=== PATIENT | female | born 1990 | race Caucasian/White ===

== ENCOUNTER 2019-10-16 08:47 | Outpatient (CLI) | payer BC, SELFPAY ==
[2019-10-16 09:13] LABS: Basophils Absolute Auto 0.04 K/mm3 (0.00-0.10); Basophils Percent Auto 0.4 % (0.0-1.0); Eosinophils Absolute Auto 0.41 K/mm3 (0.02-0.50); Eosinophils Percent Auto 4.4 % (1.0-6.0); Hematocrit 44.8 % (35.0-49.0); Hemoglobin 14.7 g/dL (12.0-15.0); Immature Granulocyte Absolute 0.02 K/mm3 (0.00-0.00); Immature Granulocyte Percent A 0.2 % (0.0-0.0); Lymphocytes Absolute Auto 2.26 K/mm3 (1.10-4.50); Lymphocytes Percent Auto 24.4 % (18.0-42.0); Mean Corpuscular HGB Conc 32.8 g/dL (32.0-36.0); Mean Corpuscular Hemoglobin 29.5 pg (27.0-31.0); Mean Corpuscular Volume 89.8 fL (78.0-102.0); Mean Platelet Volume 9.4 fl (9.2-11.8); Monocytes Percent Auto 6.5 % (2.0-11.0); Neutrophils Absolute Auto 5.9 K/mm3 (1.7-7.2); Neutrophils Percent Auto 64.1 % (50.0-70.0); Platelet Count Result 290 K/mm3 (150-420); Red Blood Count 4.99 M/mm3 (4.20-5.40); White Blood Count 9.3 K/mm3 (4.8-10.8)
[2019-10-16 09:21] LABS: Hemoglobin A1C 5.6 % (<5.7)
[2019-10-16 10:45] LABS: Alanine Aminotransferase 27 U/L (14-59); Alkaline Phosphatase 68 U/L (46-116); Anion Gap 12.2 mmol/L (7-16); Aspartate Amino Transferase 24 U/L (15-37); Bilirubin,Total 0.4 mg/dL (0.00-1.00); Blood Urea Nitrogen 15 mg/dL (7-18); Calcium 8.6 mg/dL (8.5-10.1); Carbon Dioxide 30 mmol/L (21-32); Chloride 103 mmol/L (98-108); Cholesterol 258 mg/dL (0-200); Estimated Glomerular Filt Rate 56; Glucose 74 mg/dL (70-99); HDL Direct 62 mg/dL (40-60); LDL Cholesterol Calculated 185 mg/dL (<130); Osmolality Calculated 291 mOsm/kg (285-295); Potassium 4.2 mmol/L (3.5-5.1); Sodium 141 mmol/L (136-145); Total Protein 7.5 g/dL (6.4-8.2); Triglycerides 57 mg/dL (0-150)
[2019-10-16 11:10] LABS: Thyroid Stimulating Hormone > 96.00 uIU/mL (0.36-3.74)
== END 2019-10-16 08:48 | disposition home or self-care (01) ==
LOC: CHSLAB 08:57
PROVIDERS: PCP Nurse Practitioner Family; Visit Provider Nurse Practitioner Family
DX: Z83.3 Family history of diabetes mellitus (principal); E03.9 Hypothyroidism, unspecified; G47.30 Sleep apnea, unspecified; R53.83 Other fatigue
CPT/HCPCS: 36415; 80053; 80061; 83036; 84436; 84443; 85025

== ENCOUNTER 2020-11-26 10:01 | Emergency (ER) | payer BC, SELFPAY ==
--- NOTE | ~2020-11-26 | XR_ITS ---
EXAMINATION: XR chest 1V portable DATE: 11/26/2020 11:20 INDICATION: Cough and hemoptysis TECHNIQUE: frontal view of the chest was obtained. COMPARISON: None FINDINGS: Sensitivity in the lower lung zones decreased by patient body habitus. Subtle opacities in the right lower lung zone 1 with somewhat nodular appearance projecting over the confluence of the anterior fif th and posterior ninth ribs. No pleural effusion or pneumothorax. The cardiomediastinal silhouette is normal. Visualized bones and soft tissues are unremarkable. IMPRESSION: 1. Specific subtle opacities in the right lower lung zone including a more nodular opacity for which CT would be recommended for further evaluation. Reviewed, dictated and finalized at location A. IMPRESSION: 1. Specific subtle opacities in the right lower lung zone including a more nodu lar opacity for which CT would be recommended for further evaluation.
--- NOTE | 2020-11-26 10:09 | ECG_ITS ---
Measurements Intervals [place] Rate: 93 P: 25 NM: 140 QRS: 51 QRSD: 116 T: 28 QT: 347 QTc: 432 Interpretive Statements SINUS RHYTHM BORDERLINE T WAVE ABNORMALITY- INFERIOR LEADS BASELINE ARTIFACT- I, II, III, AVL, AVF BORDERLINE ECG Electronically Signed On 11-28-2020 7:10:48 CDT by Abdias Lorenzo D.O.
[2020-11-26 10:10] VITALS: BP 140/85; PULSE 103; RESP 20; TEMP 36.8; O2SAT 95
--- NOTE | 2020-11-26 10:20 | ED.CHESTPAIN ---
HPI - Chest Pain General Chief Complaint: Upper Respiratory Infection Stated Complaint: chest pain Time Seen by Provider: 11/26/20 10:20 Source: patient and family Mode of arrival: ambulatory Limitations: no limitations History of Present Illness HPI narrative: 30-year-old woman with history of Graves disease comes in today complaining of heaviness in her upper chest that was intermittent starting a few days ago and today has been constant. She has been coughing up blood for the last 3 days and had diarrhea for the last few days. She has mild shortness of breath and headache. She denies a history of prior similar symptoms. She denies fever, chills, body aches, rash, abdominal pain and dysuria. She is a nonsmoker and has no history of lung disease. MD complaint: chest heaviness Onset (ago): day(s) (3) Timing of current episode: constant, increasing and still present Onset: during rest Pain location: substernal Pain radiation: none Severity: moderate Quality: heaviness Relieving factors: nothing Exacerbating factors: exertion Associated symptoms: dyspnea and cough Treatment prior to arrival: none Risk Factors Thoracic aortic dissection risk factors: none Pulmonary embolism risk factors: morbid obesity Related Data On Oral Contraceptives: No Home Medications Medication Instructions Recorded Confirmed levothyroxine [Euthyrox] 200 mcg PO DAILY 11/26/20 11/26/20 Allergies Allergy/AdvReac Type Severity Reaction Status Date / Time adhesive Allergy Mild Hives Verified 11/26/20 10:08 Penicillins Allergy Mild Hives Verified 11/26/20 10:08 Sulfa (Sulfonamide Allergy Mild Hives Verified 11/26/20 10:08 Antibiotics) Review of Systems Review of Systems: All systems reviewed & are unremarkable except as noted in HPI and below Constitutional: Constitutional: Denies chills, Denies fever(s) and Denies weakness Eyes: Eyes: Denies change in vision and Denies photophobia ENT: Reports nasal congestion and Denies sore throat Cardiovascular: Cardiovascular: Reports chest pain and Denies radiating jaw, neck or arm pain Respiratory: Respiratory: Reports as per HPI, Denies chest congestion, Reports cough, Reports dyspnea and Denies wheezing Gastrointestinal: Gastrointestinal: Denies abdominal pain, Reports diarrhea, Denies nausea and Denies vomiting Genitourinary: Genitourinary: Denies dysuria Musculoskeletal: Musculoskeletal: Denies back pain, Denies arthralgias and Denies joint swelling Integumentary/Breasts: Skin/Breast: Denies pruritus, Denies erythema and Denies rash Neurologic: Denies vertigo, Denies dizziness and Denies syncope Endocrine: Endocrine: Denies polydipsia and Denies polyuria Hematologic/Lymphatic: Hematologic/Lymphatic: Denies easy bleeding and Denies easy bruising Allergic/Immunologic: Allergic/Immunologic: Denies lip swelling and Denies throat swelling [facility] Past Medical History Medical History (Updated 11/26/20 @ 11:19 by Camden Freeman MD) Asthma Graves disease Surgical History Surgical History (Updated 11/26/20 @ 11:01 by Camden Freeman MD) History of History of thyroidectomy Social History Social History (Updated 11/26/20 @ 11:01 by Camden Freeman MD) Smoking status: Never smoker Substance use: never Living arrangements: with family Exam Const: General: healthy appearing, no acute distress and alert Orientation/consciousness: patient oriented x3 Limitations: no limitations HENMT: Head: normal to inspection Ears: external ears normal, TM's normal bilaterally and EAC's normal General nose exam: Normal nares present Face and sinus: normal facial exam Mouth: Yes moist mucous membranes Throat: posterior oropharynx normal Eyes: Conjunctivae: conjunctivae normal Pupils: Equal, round and reactive pupils present EOM: EOMs intact bilaterally Resp: Effort & Inspection: normal respiratory effort and not labored Auscultation: clear to auscultatio
[2020-11-26 10:40] LABS: Basophils Absolute Auto 0.03 K/mm3 (0.00-0.10); Basophils Percent Auto 0.5 % (0.0-1.0); Eosinophils Absolute Auto 0.04 K/mm3 (0.02-0.50); Eosinophils Percent Auto 0.7 % (1.0-6.0); Hematocrit 45.6 % (35.0-49.0); Hemoglobin 14.8 g/dL (12.0-15.0); Immature Granulocyte Absolute 0.03 K/mm3 (0.00-0.00); Immature Granulocyte Percent A 0.5 % (0.0-0.0); Lymphocytes Absolute Auto 1.28 K/mm3 (1.10-4.50); Lymphocytes Percent Auto 21.4 % (18.0-42.0); Mean Corpuscular HGB Conc 32.5 g/dL (32.0-36.0); Mean Corpuscular Hemoglobin 28.1 pg (27.0-31.0); Mean Corpuscular Volume 86.7 fL (78.0-102.0); Mean Platelet Volume 9.1 fl (9.2-11.8); Monocytes Absolute Auto 0.57 K/mm3 (0.10-0.90); Monocytes Percent Auto 9.5 % (2.0-11.0); Neutrophils Percent Auto 67.4 % (50.0-70.0); Platelet Count Result 267 K/mm3 (150-420); Red Blood Count 5.26 M/mm3 (4.20-5.40); Red Cell Distribution Width 12.9 % (11.6-14.4)
[2020-11-26 10:43] LABS: Pregnancy On Board Control Positive; Urine Pregnancy Test Negative
[2020-11-26 10:55] LABS: D Dimer 0.47 mg/L (0.19-0.50); Prothrombin Time 10.4 Seconds (9.50-12.10)
[2020-11-26 10:58] LABS: Alanine Aminotransferase 34 U/L (14-59); Albumin Level 3.6 g/dL (3.4-5.0); Alkaline Phosphatase 70 U/L (46-116); Anion Gap 10 mmol/L (8-16); Aspartate Amino Transferase 18 U/L (15-37); Bilirubin,Total 0.3 mg/dL (0.00-1.00); Blood Urea Nitrogen 12 mg/dL (7-18); Calcium 8.6 mg/dL (8.5-10.1); Carbon Dioxide 29 mmol/L (21-32); Chloride 102 mmol/L (98-108); Estimated Glomerular Filt Rate > 60; Glucose 89 mg/dL (70-99); Osmolality Calculated 290 mOsm/kg (285-295); Potassium 3.8 mmol/L (3.5-5.1); Sodium 141 mmol/L (136-145); Total Protein 7.9 g/dL (6.4-8.2); Troponin I 5.7 ng/L (0.00-60.4)
[2020-11-26 11:03] LABS: SARS-CoV-2 Ag Positive (Negative)
[2020-11-26 11:25] VITALS: BP 143/76
[2020-11-26 12:05] VITALS: BP 141/83; PULSE 74; RESP 16; O2SAT 98
== END 2020-11-26 12:05 | disposition home or self-care (01) ==
PROVIDERS: Emergency Provider Emergency Medicine
DX: U07.1 COVID-19 (principal)
CPT/HCPCS: 36415; 71045; 80053; 81025; 84484; 85025; 85380; 85610; 85730; 87426; 93005; 99283; 99284; C9803

== ENCOUNTER 2022-07-02 18:50 | Emergency (ER) | payer BC, SELFPAY ==
--- NOTE | ~2022-07-02 | CT_ITS ---
EXAMINATION: CTA chest PE protocol DATE: 07/02/2022 20:20 INDICATION: DYSPNEA W/SOB 2 DAYS;PRODUCTIVE COUGH TODAY;ELEVATED D DIMER TECHNIQUE: Computed tomography angiography (CTA) of the chest was performed with 100 mL Omnipaque-350 intravenous contrast timed to evaluate the pulmonary arteries. Coronal maximum intensity projection 3D-reconstructions were created by the technologist. The dose-length product (DLP) was 899.07 mGy-cm. Automated exposure control and iterative reconstruction technique were employed. COMPARISON: None. FINDINGS: Lung parenchyma and airways: Subtle scattered areas of centrilobular groundglass opacities. Small sub segmental areas of scar/atelectasis in the left lung. Pleura: Unremarkable. Thoracic inlet, axillae and chest wall: Unremarkable. Thoracic aorta: Normal. Mediastinum: Normal. Heart and pericardium: Normal. Coronary artery calcifications: . Upper abdomen: No significant finding. Bones: No acute osseous finding. Pulmonary arteries: Study quality: Non-diagnostic level of pulmonary arterial enhancement. No definit e central pulmonary pulmonary emboli detected, although this should be interpreted with caution. IMPRESSION: Examination is nondiagnostic with regard to diagnosing pulmonary embolus. Consider repeat examination if better IV access can be obtained and if clinical suspicion remains high. Also consider V/Q or per fusion only lung scan. Mild scattered centrilobular opacities may reflect hypersensitivity pneumonitis, respiratory bronchit is, or infectious airways disease. Reviewed, dictated and finalized at location K. IMPRESSION: Examination is nondiagnostic with regard to diagnosing pulmonary embolus. Consi blanca repeat examination if better IV access can be obtained and if clinical susp icion remains high. Also consider V/Q or perfusion only lung scan. Mild scattered centrilobular opacities may reflect hypersensitivity pneumonitis , respiratory bronchitis, or infectious airways disease.
--- NOTE | ~2022-07-02 | XR_ITS ---
EXAMINATION: XR chest 1V portable Exam Date/Time: 07/02/2022 19:15 CDT HISTORY: DYSPNEA WITH SOB 2 DAYS; PRODUCTIVE COUGH TODAY.HX ASTHMA Comparison: 11/26/2020. RESULT: Lines, tubes, and devices: None. Lungs and pleura: Exam limited by body habitus. Redemonstration of the nodular right lower lobe opac ity, likely hamartoma or granuloma. Bibasilar scar/atelectasis. Cardiomediastinal silhouette: Stable. Other: No acute osseous or upper abdominal finding. IMPRESSION: No acute cardiopulmonary process. Reviewed, dictated and finalized at location K.
[2022-07-02 18:57] VITALS: BP 140/84; PULSE 100; RESP 22; TEMP 37.7; O2SAT 92
--- NOTE | 2022-07-02 18:57 | ECG_ITS ---
Measurements Intervals [place] Rate: 115 P: 65 NV: 147 QRS: 41 QRSD: 103 T: 22 QT: 341 QTc: 473 Interpretive Statements SINUS TACHYCARDIA BASELINE ARTIFACT NONSPECIFIC T-WAVE ABNORMALITY LOW-VOLTAGE QRS IN PRECORDIAL LEADS ABNORMAL ECG NO PREVIOUS ECG AVAILABLE FOR COMPARISON Electronically Signed On 07-03-2022 18:18:50 CDT by Truong Jerome M.D.
--- NOTE | 2022-07-02 18:57 | ED.SOB ---
HPI - SOB/Dyspnea General Chief Complaint: Shortness of Breath/Dyspnea Stated Complaint: sob Source: patient Mode of arrival: ambulatory Limitations: no limitations History of Present Illness HPI Narrative: 32-year-old female with a history of asthma, Tapia's palsy, Graves disease status post radioactive iodine with hypothyroidism, obesity, ELVIA, chronic leg swelling, bilateral pneumonia presents to the ER with a 2 day history of -- worsening shortness of breath -- cough with mucopurulent sputum -- fever with chills -- increasing leg swelling for which she was recently prescribed hydrochlorothiazide MD elicited complaint: shortness of breath, cough and asthma attack Pertinent past history: asthma Onset (ago): day(s) ( 2 days) Severity: mild Exacerbating factors: exertion Relieving factors: nothing Known history of: asthma Associated symptoms: fever, cough and sputum production Treatment prior to arrival: none Related Data Home oxygen amount: none Home Medications Medication Instructions Recorded Confirmed hydrochlorothiazide 12.5 mg capsule 12.5 mg PO DAILY 07/02/22 07/02/22 levothyroxine 200 mcg tablet 200 mcg PO DAILY 07/02/22 07/02/22 omeprazole 40 mg capsule,delayed 40 mg PO DAILY 07/02/22 07/02/22 release Allergies Allergy/AdvReac Type Severity Reaction Status Date / Time adhesive Allergy Mild Hives Verified 07/05/21 14:52 Penicillins Allergy Mild Hives Verified 07/05/21 14:52 Sulfa (Sulfonamide Allergy Mild Hives Verified 07/05/21 14:52 Antibiotics) Review of Systems Review of Systems: All systems reviewed & are unremarkable except as noted in HPI and below Constitutional: Constitutional: Reports as per HPI, Reports no additional constitutional complaints, Reports chills and Reports fatigue Eyes: Eyes: Reports as per HPI and Reports no additional eye complaints Comments: 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 ENT: Reports system reviewed and no additional complaints, except as documented and Reports as per HPI Cardiovascular: Cardiovascular: Reports as per HPI and Reports no additional cardiovascular complaints Respiratory: Respiratory: Reports as per HPI, Reports no additional respiratory complaints, Reports cough and Reports dyspnea Gastrointestinal: Gastrointestinal: Reports as per HPI and Reports no additional gastrointestinal complaints Genitourinary: Genitourinary: Reports no additional female genitourinary complaints and Reports as per HPI Musculoskeletal: Musculoskeletal: Reports no additional musculoskeletal complaints and Reports as per HPI Integumentary/Breasts: Skin/Breast: Reports system reviewed and no additional complaints, except as docu and Reports as per HPI Neurologic: Reports system reviewed and no additional complaints, except as documented and Reports as per HPI Psychiatric: Psychiatric: Reports no additional psychiatric complaints and Reports as per HPI Endocrine: Endocrine: Reports no additional endocrine complaints and Reports as per HPI Hematologic/Lymphatic: Hematologic/Lymphatic: Reports no additional hematologic/lymphatic complaints and Reports as per HPI Allergic/Immunologic: Allergic/Immunologic: Reports no additional allergic/immunologic complaints and Reports as per HPI [facility] Past Medical History Medical History (Updated 07/02/22 @ 21:13 by Obed Cowart MD) Asthma Graves disease Surgical History Surgical History (Updated 07/05/21 @ 14:52 by Christiana Fleming) History of History of thyroidectomy Social History Social History (System 07/05/21 @ 14:52 by Christiana Fleming) Smoking status: Never smoker Substance use: never Living arrangements: with family Exam Const: General: no acute distress Orientation/consciousness: patient oriented x3 Limitations: no limitations HENMT: Head: normal to inspection Ears: external ears normal Face/Nose/Sinus: Normal external nose present Face and sinus: normal
[2022-07-02 19:13] LABS: Basophils Absolute Auto 0.05 K/mm3 (0.00-0.10); Basophils Percent Auto 0.3 % (0.0-1.0); Eosinophils Absolute Auto 0.43 K/mm3 (0.02-0.50); Eosinophils Percent Auto 2.7 % (1.0-6.0); Hematocrit 41.2 % (35.0-49.0); Hemoglobin 13.2 g/dL (12.0-15.0); Immature Granulocyte Absolute 0.07 K/mm3 (0.00-0.00); Immature Granulocyte Percent A 0.4 % (0.0-0.0); Lymphocytes Absolute Auto 1.21 K/mm3 (1.10-4.50); Lymphocytes Percent Auto 7.7 % (18.0-42.0); Mean Corpuscular Hemoglobin 28.7 pg (27.0-31.0); Mean Corpuscular Volume 89.6 fL (78.0-102.0); Monocytes Absolute Auto 1.05 K/mm3 (0.10-0.90); Monocytes Percent Auto 6.7 % (2.0-11.0); Neutrophils Absolute Auto 12.9 K/mm3 (1.7-7.2); Neutrophils Percent Auto 82.2 % (50.0-70.0); Platelet Count Result 331 K/mm3 (150-420); Red Cell Distribution Width 13.2 % (11.6-14.4); White Blood Count 15.7 K/mm3 (4.8-10.8)
[2022-07-02 19:26] LABS: Appearance Urine Clear (Clear); Bilirubin Urine Negative (Negative); Blood Urine Negative (Negative); Color Urine Yellow (Yellow); Glucose Urine UA Negative (Negative); Ketones Urine Negative (Negative); Leukocyte Esterase Ur Negative LEU/UL (Negative); Nitrate Urine Negative (Negative); Protein Urine 1+ (Negative); Specific Grav Ur >= 1.030 (1.010-1.020)
[2022-07-02 19:28] LABS: Partial Thromboplastin Time 30.2 SEC (23.90-30.70); Prothrombin Time 11.1 Seconds (9.50-12.10)
[2022-07-02 19:30] LABS: Add Urine Microscopic? YES; Bacteria Urine Trace /hpf; Mucus Urine Few /lpf; Pregnancy On Board Control Positive; RBC Urine 0-2 /hpf (0-2); Squamous Epithelial Cell Urine Few /hpf (Few); Urine Pregnancy Test Negative; WBC Urine 0-3 /hpf (0-3)
[2022-07-02 19:31] LABS: Lactic Acid Reflex 1.6 mmol/L (0.4-2.0)
[2022-07-02 19:32] LABS: D Dimer 0.56 mg/L (0.19-0.50)
[2022-07-02] MEDS: IPRATROPIUM 0.5 MG/ALBUTEROL SULFATE 2.5 MG AMPUL.NEB 3 ML INHALATION (19:32)
[2022-07-02 19:33] VITALS: PULSE 113; RESP 20; O2SAT 92
[2022-07-02 19:36] LABS: Alanine Aminotransferase 32 U/L (14-59); Albumin Level 3.3 g/dL (3.4-5.0); Alkaline Phosphatase 85 U/L (46-116); Anion Gap 8 mmol/L (8-16); Aspartate Amino Transferase 18 U/L (15-37); Bilirubin,Total 0.5 mg/dL (0.00-1.00); Blood Urea Nitrogen 15 mg/dL (7-18); Calcium 8.8 mg/dL (8.5-10.1); Carbon Dioxide 31 mmol/L (21-32); Chloride 101 mmol/L (98-108); Estimated CRCL calculation 84 ml/min; Estimated Glomerular Filt Rate 52; Glucose 128 mg/dL (70-99); NT Pro B Type Natriuretic Pept 39 pg/mL (0-125); Osmolality Calculated 292 mOsm/kg (285-295); Potassium 3.5 mmol/L (3.5-5.1); Sodium 140 mmol/L (136-145); Total Protein 7.8 g/dL (6.4-8.2); Troponin I 6.9 ng/L (0.00-60.4)
[2022-07-02 19:41] VITALS: PULSE 112; RESP 20
[2022-07-02 20:02] LABS: Influenza A QL RT-PCR Negative (Negative); Influenza B QL RT-PCR Negative (Negative); RSV RNA, RT-PCR Negative (Negative); SARS-CoV-2 RNA PCR Negative (Negative)
[2022-07-02] MEDS: LACTATED RINGERS 1,000 ML 999 ML IV CONT (20:19)
[2022-07-02 20:52] VITALS: BP 139/88; PULSE 98; RESP 22; TEMP 37.2; O2SAT 93
[2022-07-02 21:17] VITALS: BP 136/90; PULSE 99; RESP 20; TEMP 37.2; O2SAT 94
[2022-07-02] MEDS: methylPREDNISolone SOD SUCC 40 MG VIAL IV PUSH (21:22)
[2022-07-02] MEDS: AZITHROMYCIN 250 MG TABLET 500 MG PO (21:22)
== END 2022-07-02 21:29 | disposition home or self-care (01) ==
PROVIDERS: Emergency Provider Internal Medicine Critical Care Medicine
DX: J45.901 Unspecified asthma with (acute) exacerbation (principal); Z20.822 Contact with and (suspected) exposure to COVID-19
CPT/HCPCS: 36415; 71045; 71275; 80053; 81001; 81025; 83605; 83880; 84484; 85025; 85380; 85610; 85730; 87637; 93005; 94640; 96361; 96374; 99284; A9270; J2920; J7120; Q9967